=== PATIENT | female | born 1980 | race Caucasian/White ===

== ENCOUNTER → 2021-03-07 | Outpatient (REF) | payer OTHER | LOC: M LAB REF 14:10 | PROVIDERS: ATTEND Physician Assistant | DX: D23.5 Other benign neoplasm of skin of trunk (principal); D23.71 Other benign neoplasm of skin of right lower limb, including hip ==

== ENCOUNTER → 2025-04-18 | Outpatient (REF) | payer BC | LOC: M LAB REF 18:08 | PROVIDERS: ATTEND Plastic Surgery Surgery of the Hand | DX: L57.0 Actinic keratosis (principal) ==